=== PATIENT | female | born 1985 | race African-American/Black ===

== ENCOUNTER 2024-09-21 22:27 | Emergency (ER) | payer OTHER ==
[~2024-09-21] VITALS: Ht 172.7 cm; Wt 87.0 kg
[2024-09-21 22:34] VITALS: BP 133/87; TEMP 36.9
[2024-09-22 00:11] VITALS: PULSE 74; RESP 20; O2SAT 97
[2024-09-22] MEDS: ALBUTEROL (0.5%) 2.5MG/0.5ML NEB HHN SCH (00:11)
[2024-09-22] MEDS: ACETAMINOPHEN 325MG TABLET PO ONE (00:14)
[2024-09-22] MEDS ORDERED: ALBU90AE INH (00:42)
== END 2024-09-22 00:48 | disposition home or self-care (01) ==
LOC: ER 22:27
DX: B34.9 Viral infection, unspecified (principal); R05.9 Cough, unspecified; Z72.0 Tobacco use; E78.5 Hyperlipidemia, unspecified; I10 Essential (primary) hypertension; Z88.1 Allergy status to other antibiotic agents
CPT/HCPCS: 71045; 93005; 99283; 94640; Z7610 ×2; 94070; 94664; 96372; 98960